=== PATIENT | male | born 1970 ===

== ENCOUNTER 2019-08-15 23:06 | Day surgery (SDC) | payer OTHER ==
[~2019-08-15] VITALS: Ht 185.4 cm; Wt 94.2 kg
--- NOTE | 2019-08-15 23:24 | NUR ---
PT. TO ED WITH C/O SUDDEN ONSET SHARP RLQ ABD PAIN THAT RADIATES TO UMBILICAL AREA X 2 HOURS. DOES REPORT HX OF UMBILICAL HERNIA THAT HE IS SUPPOSED TO HAVE SURGERY FOR AT SOME POINT. DENIES N/V/D. 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 HARPER BA IN TO EVAL PT. AND DISCUSS POC. PT. AMBULATORY TO BR WITH STEADY GAIT TO PROVIDE URINE SAMPLE. DENIES ANY DYSURIA. PT. REPORTS 7/10 PAIN BUT DECLINES ANY PAIN MEDS AT THIS TIME.
--- NOTE | 2019-08-15 23:33 | NUR ---
URINE SENT TO LAB, LABS DRAWN. PT. UPDATED ON POC. REPORTS HE WILL LET US KNOW IF HE CHANGES HIS MIND ON PAIN MEDS. CALL LIGHT IN REACH. CONTINUOUS PULSE OX AND B/P MONITORS IN PLACE. REPORT TO TETE SILVER TO ASSUME CARE OF PT.
[2019-08-15] MEDS ORDERED: FLUO10CA14 PO (23:36)
[2019-08-15 23:40] LABS: BASOPHILS # (AUTO) 0.07 x10^3/uL (0-0.1); BASOPHILS % (AUTO) 1 % (0-1); EOSINOPHILS # (AUTO) 0.17 x10^3/uL (0-0.4); EOSINOPHILS % (AUTO) 1 % (1-7); LYMPHOCYTES # (AUTO) 2.57 x10^3/uL (1-3.4); LYMPHOCYTES % (AUTO) 19 % (22-44); MD NO; MEAN CORPUSCULAR HGB CONC 33.8 g/dL (33.2-36.2); MEAN CORPUSCULAR VOLUME 88.7 fL (81-97); MONOCYTES # (AUTO) 0.79 x10^3/uL (0.2-0.8); MONOCYTES % (AUTO) 6 % (2-9); NEUTROPHILS # (AUTO) 10.02 x10^3/uL (1.8-6.8); NEUTROPHILS % (AUTO) 74 % (42-75); PLATELET COUNT 283 x10^3/uL (130-400); RED BLOOD COUNT 4.89 x10^6/uL (4.38-5.82); RED CELL DISTRIBUTION WIDTH 13.3 % (9.4-14.8)
[2019-08-15 23:43] LABS: MICROSCOPIC NOT IND
[2019-08-15 23:46] LABS: CULTURE INDICATED? NO
[2019-08-15 23:51] LABS: ALBUMIN 4.1 g/dL (3.4-5.0); ANION GAP 8 mmol/L (5-15); CALCIUM 8.9 mg/dL (8.5-10.1); CHLORIDE 108 mmol/L (98-107); CREATININE 1.09 mg/dL (0.7-1.3)
--- NOTE | 2019-08-16 00:14 | NUR ---
all resutls back at this time. new orders for ct placed.
--- NOTE | 2019-08-16 00:21 | NUR ---
PIV ESTABLISHED. VSS. PT STILL DECLINING PAIN MEDICATION AT THIS TIME. PT STATES HE WILL LET US KNOW WHEN HE IS READY FOR PAIN MEDICATION. AWAITING CT.
--- NOTE | 2019-08-16 00:35 | NUR ---
pt to ct.
[2019-08-16] MEDS ORDERED: OMNIPAQUE 350 MG/ML, 100ML BOTTLE ONE (00:46)
--- NOTE | 2019-08-16 00:46 | NUR ---
pt back from ct.
[2019-08-16] MEDS ORDERED: MORPHINE SULFATE 4 MG/ML, 1ML IVPush ONE (01:00)
[2019-08-16] MEDS ORDERED: CEFTRIAXONE PMX 1GM/50ML 50 ML IV ONE (01:00)
--- NOTE | 2019-08-16 01:01 | NUR ---
BREAK RN: ALL RESULTS BACK. HARPER CRUZ IN TO DISCUSS POC WITH PT. NO BLOOD CULTURES NEEDED PRIOR TO IV ABX PER DR. MCCAULEY.
[2019-08-16] MEDS ORDERED: CEFTRIAXONE PMX 1GM/50ML 50 ML ONE (01:04)
[2019-08-16] MEDS ORDERED: MORPHINE SULFATE 4 MG/ML, 1ML ONE (01:05)
--- NOTE | 2019-08-16 01:35 | NUR ---
report to cathy valenzuela. pt ready for transport.
--- NOTE | 2019-08-16 02:04 | NUR ---
report to or.
[2019-08-16] MEDS ORDERED: FENTANYL PF 100 MCG/2ML ONE ×2 (02:14→04:00)
[2019-08-16] MEDS ORDERED: MIDAZOLAM 1 MG/ML, 2ML ONE (02:14)
[2019-08-16] MEDS ORDERED: BUPIVACAINE/PF-EPI 0.5% 1:200K ONE ×2 (02:30→03:12)
[2019-08-16] MEDS ORDERED: SUCCINYLCHOLINE 20 MG/ML, 10ML ONE (02:37)
[2019-08-16] MEDS ORDERED: ROCURONIUM 10 MG/ML,10ML ONE (02:37)
[2019-08-16] MEDS ORDERED: PROPOFOL 10 MG/ML, 20ML ONE (02:37)
[2019-08-16] MEDS ORDERED: ONDANSETRON 2MG/ML, 2ML ONE (02:37)
[2019-08-16] MEDS ORDERED: DEXAMETHASONE 4 MG/ML, 1ML ONE (02:37)
[2019-08-16] MEDS ORDERED: NEOSTIGMINE 1 MG/ML, 10ML ONE (02:37)
[2019-08-16] MEDS ORDERED: GLYCOPYRROLATE 0.2MG/1ML, 5ML ONE (02:37)
[2019-08-16] MEDS ORDERED: HYDROmorphone 2 MG/ML, 1ML IVPush PRN (03:30)
[2019-08-16] MEDS ORDERED: ONDANSETRON 2MG/ML, 2ML IV PRN (03:30)
[2019-08-16] MEDS ORDERED: LORazepam 2 MG/ML, 1ML IVPush PRN (03:30)
[2019-08-16] MEDS ORDERED: OXYcodone 5 MG/5 ML ORAL.SOL UDC PO PRN (03:30)
[2019-08-16] MEDS ORDERED: MEPERIDINE/PF 25MG/ML,1ML IVPush PRN (03:30)
[2019-08-16] MEDS ORDERED: ACETAMINOPHEN 325 MG TABLET PO PRN (03:30)
[2019-08-16] MEDS ORDERED: LACTATED RINGERS 1,000 ML IV SCH (03:47)
[2019-08-16] MEDS ORDERED: MEPERIDINE/PF 25MG/ML,1ML ONE (03:55)
[2019-08-16] MEDS ORDERED: OXYcodone 5 MG/5 ML ORAL.SOL UDC ONE (04:00)
[2019-08-16] MEDS ORDERED: PROMETHAZINE 25 MG/ML, 1ML IM PRN (04:00)
[2019-08-16] MEDS ORDERED: morphine SULFATE 10 MG/ML, 1ML IVPush PRN (04:00)
[2019-08-16] MEDS ORDERED: ONDANSETRON 2MG/ML, 2ML IVPush PRN (04:00)
[2019-08-16] MEDS ORDERED: OXYcodone/APAP 7.5/325MG TABLET PO PRN (04:00)
[2019-08-16] MEDS: FENTANYL PF 100 MCG/2ML IV PRN ×2 (04:04→04:19)
[2019-08-16] MEDS ORDERED: HYDROmorphone 1 MG/ML, 1ML INJ ONE (04:23)
[2019-08-16 05:14] VITALS: BP 106/70
[2019-08-16 06:25] VITALS: BP 103/67
[2019-08-16] MEDS ORDERED: OXYC-306 PO (06:32)
[2019-08-16] MEDS ORDERED: ONDA4TAB7 PO (06:35)
== END 2019-08-16 11:30 | disposition home or self-care (01) ==
LOC: ED 08-16 00:13 → EDIP 08-16 01:04 → OUT 08-16 01:04 → UNDOADMIN 08-16 01:04 → EDIP 08-16 05:08 → 4NE 08-16 05:08 → UNDODISIN 08-16 11:30 → OUT 08-16 11:30
PROVIDERS: ATTEND Student in an Organized Health Care Education/Training Program
DX: K35.80 Unspecified acute appendicitis (principal); K42.9 Umbilical hernia without obstruction or gangrene; F41.9 Anxiety disorder, unspecified; F12.90 Cannabis use, unspecified, uncomplicated; Z79.899 Other long term (current) drug therapy; Z98.890 Other specified postprocedural states
CPT/HCPCS: 36415; 44970; 49585; 74177; 76705; 80048; 81003; 82040; 85025; 88304; 96365; 99285; J0696; J1170; J2175; J2250; J2270; J3010; Q9967; G0378; J1100; J2405; J2704; J2710; J0330